=== PATIENT | male | born 1945 | race Caucasian/White ===

== ENCOUNTER 2018-03-20 07:50 | Day surgery (SDC) | payer BC ==
--- NOTE | 2018-03-20 09:05 | CP.SDSHP ---
Same Day Surgery H & P - History Proposed Procedure: colonoscopy Pre-Op Diagnosis: screen - Previous Medical/Surgical History Comments: gastritis - Allergies Allergies: Allergies No Known Allergies Allergy (Verified 03/19/18 14:21) - Physical Exam Vital Signs: Vital Signs 03/20/18 08:16 Temperature 99 F Pulse Rate 80 Respiratory 20 Rate Blood Pressure 159/88 H O2 Sat by Pulse 98 Oximetry Mental Status: Alert & Oriented x3 Neuro: WNL Heart: WNL Lungs: WNL GI: WNL - Impression Impression: screen Pt. Evaluated Today:Candidate for Anesthesia & Procedure: Yes - Date & Time Date: 03/20/18 Time: 08:55 Short Stay Discharge - Short Stay Discharge Admitting Diagnosis/Reason for Visit: ENCOUNTER FOR SCREENING FOR MALIGNANT NEOPLASM OF Disposition: HOME/ ROUTINE
[2018-03-20] MEDS ORDERED: Propofol 10 mg/ml Inj (20 ML) ONE (09:10)
[2018-03-20] MEDS ORDERED: Lidocaine Hydrochloride 5 ML INJ ONE (09:10)
[2018-03-20] MEDS ORDERED: Lactated Ringer's 500 ML IV ONE (09:31)
[2018-03-20 12:40] VITALS: BP 117/83; PULSE 75; RESP 12; TEMP 98.4; O2SAT 99
== END 2018-03-20 10:45 | disposition home or self-care (01) ==
LOC: C.ENDO 07:50
PROVIDERS: ATTEND Internal Medicine Gastroenterology
DX: Z12.11 Encounter for screening for malignant neoplasm of colon (principal); K57.90 Diverticulosis of intestine, part unspecified, without perforation or abscess without bleeding; K64.8 Other hemorrhoids
CPT/HCPCS: 45378; J2704; J7120